=== PATIENT | male | born 1935 | race Hispanic/Latino ===

== ENCOUNTER 2022-03-06 14:46 | Emergency (ER) | payer MEDICARE, OTHER, SELFPAY ==
[2022-03-06 14:55] VITALS: BP 175/74; PULSE 71; RESP 20; TEMP 36.7; O2SAT 98; BMI 24.2
--- NOTE | 2022-03-06 15:35 | DI.RAD.S_ITS ---
PROCEDURE: XR CHEST 2V INDICATIONS: pneumonia worsening? TECHNIQUE: 2 views of the chest were acquired. COMPARISON: [facility], CR, XR CHEST 2 VIEWS, 04/06/2019, 13:46. FINDINGS: Surgical changes and devices: Sternotomy wires and mediastinal clips are present. Lungs and pleura: Mild patchy opacities are seen in the medial right lung base. No pleural effusion or pneumothorax. Mediastinum: Mediastinal contours are normal. Heart size is normal. Bones and chest wall: No suspicious bony abnormalities. Soft tissues appear unremarkable. IMPRESSION: Mild patchy opacities in the medial right lower lobe may represent pneumonia, atelectasis, or aspiration. Approved by: Al Pfeiffer M.D. on 03/06/2022 at 16:19
[2022-03-06] MEDS: AMOXICILLIN/CLAV 875/125 MG 1 TAB PO (16:47)
[2022-03-06] MEDS: KETOROLAC 10 MG TABLET PO (16:47)
[2022-03-06] MEDS: CIPROFLOXACIN/DEXAMETH OTIC SUSP 4 DROPS EAR-LEFT (16:51)
[2022-03-06] MEDS: ALBUTEROL HFA PREPACK 1 BOX MISC (16:51)
--- NOTE | 2022-03-06 17:31 | ED_ITS ---
HPI - Ear Problem <BEVERLEY Lazo - Last Filed: 03/06/22 17:38> General Chief complaint: Ear Stated complaint: Pneumonia not getting better Time Seen by Provider: 03/06/22 15:35 Source: patient Mode of arrival: Ambulatory History of Present Illness HPI Narrative: This is an 86-year-old gentleman who presents to the emergency department after a 5 day course of azithromycin for bilateral lobe pneumonia complaining of left ear pain and ear canal pain that he states has been ongoing for the last few days. He denies fever chills, states that he had an upper respiratory illness 2 weeks ago, started having fever and chills and was started on azithromycin for pneumonia found on x-ray. 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 He denies any hearing changes, states that the ear canal is tender, he is had a mild amount of drainage coming from the ear. He states that his pneumonia symptoms have improved although he has a frequent cough, denies congestion but has mucus production. Related Data Previous Rx's Medication Instructions Recorded acetaminophen 325 mg tablet 650 mg PO Q6H PRN pain #30 tabs 03/06/22 (Tylenol) albuterol sulfate 90 mcg/actuation 1 puff inhalation QID PRN 03/06/22 aerosol inhaler shortness of breath or wheezing #8.5 grams amoxicillin 875 mg-potassium 1 tab PO BID 10 days #20 tabs 03/06/22 clavulanate 125 mg tablet benzonatate 200 mg capsule 200 mg PO TID PRN cough #14 caps 03/06/22 Allergies Allergy/AdvReac Type Severity Reaction Status Date / Time No Known Drug Allergies Allergy Verified 03/06/22 15:05 Review of Systems <BEVERLEY Lazo - Last Filed: 03/06/22 17:38> Review of Systems ROS Unobtainable: All systems reviewed & are unremarkable except as noted in HPI and below Patient History <BEVERLEY Lazo - Last Filed: 03/06/22 17:38> Social History Smoking Status: Former smoker Smoking Status: Former smoker Substance Use Type: does not use Exam <BEVERLEY Lazo - Last Filed: 03/06/22 17:38> Narrative Exam Narrative: Reviewed vitals signs and nursing notes. General: cooperative, comfortable, in no acute distress, well groomed HEENT: symmetrical facial expressions, moist mucous membranes, left ear canal with erythema, mild amount of drainage versus wound present, tender to exam, left TM is suppurative, erythematous, without rupture, without mastoid tenderness, right TM with mild erythema at the base of the canal, without suppuration, erythema, or rupture of the TM. Cardiovascular: regular rate and rhythm, no peripheral edema, warm extremities Respiratory: normal effort, tachypneic, diminished breath sounds to the right middle and lower lobe, congestion present with productive cough able to speak in complete sentences, without wheezing, stridor, or abnormal breath sounds. No retractions. Without hypoxia Skin: brisk capillary refill, without pallor or erythema Neuro: normal speech and cognition, A&O x3, ambulatory, clear speech Psych: mental status is grossly normal, congruent mood, normal affect, pleasant and cooperative Initial Vital Signs Initial Vital Signs: Vital Signs Temperature 98.0 F 03/06/22 14:55 Pulse Rate 71 03/06/22 14:55 Respiratory Rate 20 03/06/22 14:55 Blood Pressure 175/74 H 03/06/22 14:55 Pulse Oximetry 98 03/06/22 14:55 Oxygen Delivery Method 03/06/22 14:55 <Paul Bolton DO - Last Filed: 03/06/22 19:22> Initial Vital Signs Initial Vital Signs: Vital Signs Temperature 98.0 F 03/06/22 14:55 Pulse Rate 71 03/06/22 14:55 Respiratory Rate 20 03/06/22 14:55 Blood Pressure 175/74 H 03/06/22 14:55 Pulse Oximetry 98 03/06/22 14:55 Oxygen Delivery Method 03/06/22 14:55 Course <BEVERLEY Lazo - Last Filed: 03/06/22 17:38> Orders Ordered: ED Orders 03/06/22 15:35 Chest [XR chest 2V] Stat 03/06/22 16:29 RT Consult Eval and Treat NOW Discontinued Medications Albuterol (Albuterol Hfa Mdi 60 Puff/8 Gm Inhaler) 1 puff INH NOW ONE Stop: 03/06/22 16:30 Albuterol (Albuterol Hfa Prepack) 1 box MISC SEEINSTR ONE Stop: 03/06/22 16:49 Last Admin: 03/06/22 16:51 Dose: 1 box Documented By: PEARL Amoxicillin/Clavulanate Potassium (Amoxicillin/Clav 875/125 Mg) 1 tab PO NOW ONE Stop: 03/06/22 16:29 Last Admin: 03/06/22 16:47 Dose: 1 tab Documented By: PEARL Ciprofloxacin/Dexamethasone (Ciprofloxacin/Dexameth Otic Susp) 4 drops EAR-LEFT NOW ONE Stop: 03/06/22 16:29 Last Admin: 03/06/22 16:51 Dose: 1 1000units Documented By: PEARL Ketorolac Tromethamine (Ketorolac 10 Mg Tablet) 10 mg PO NOW ONE Stop: 03/06/22 16:29 Last Admin: 03/06/22 16:47 Dose: 10 mg Documented By: PEARL Vital Signs Vital signs: Vital Signs - 8 hr 03/06/22 14:55 Temperature 98.0 F Pulse Rate 71 Respiratory Rate 20 Blood Pressure 175/74 H Pulse Oximetry 98 Oxygen Delivery Method Room Air <Paul Bolton DO - Last Filed: 03/06/22 19:22> Orders Ordered: ED Orders 03/06/22 15:35 Chest [XR chest 2V] Stat 03/06/22 16:29 RT Consult Eval and Treat NOW Discontinued Medications Albuterol (Albuterol Hfa Mdi 60 Puff/8 Gm Inhaler) 1 puff INH NOW ONE Stop: 03/06/22 16:30 Albuterol (Albuterol Hfa Prepack) 1 box MISC SEEINSTR ONE Stop: 03/06/22 16:49 Last Admin: 03/06/22 16:51 Dose: 1 box Documented By: PEARL Amoxicillin/Clavulanate Potassium (Amoxicillin/Clav 875/125 Mg) 1 tab PO NOW ONE Stop: 03/06/22 16:29 Last Admin: 03/06/22 16:47 Dose: 1 tab Documented By: PEARL Ciprofloxacin/Dexamethasone (Ciprofloxacin/Dexameth Otic Susp) 4 drops EAR-LEFT NOW ONE Stop: 03/06/22 16:29 Last Admin: 03/06/22 16:51 Dose: 1 1000units Documented By: PEARL Ketorolac Tromethamine (Ketorolac 10 Mg Tablet) 10 mg PO NOW ONE Stop: 03/06/22 16:29 Last Admin: 03/06/22 16:47 Dose: 10 mg Documented By: PEARL Vital Signs Vital signs: Vital Signs - 8 hr 03/06/22 14:55 Temperature 98.0 F Pulse Rate 71 Respiratory Rate 20 Blood Pressure 175/74 H Pulse Oximetry 98 Oxygen Delivery Method Room Air Medical Decision Making <Wendi Quintero, [facility] - Last Filed: 03/06/22 17:38> Imaging Data Chest x-ray: Radiologist's Impression: PROCEDURE:? XR CHEST 2V ? INDICATIONS:? pneumonia worsening? ? TECHNIQUE:? 2 views of the chest were acquired.? ? COMPARISON:? [facility], CR, XR CHEST 2 VIEWS, 04/06/2019, 13:46. ? FINDINGS:? ? Surgical changes and devices:? Sternotomy wires and mediastinal clips are present. ? Lungs and pleura:? Mild patchy opacities are seen in the medial right lung base.? No pleural effusion or pneumothorax. ? Mediastinum:? Mediastinal contours are normal.? Heart size is normal.? ? Bones and chest wall:? No suspicious bony abnormalities.? Soft tissues appear unremarkable.? ? IMPRESSION:? Mild patchy opacities in the medial right lower lobe may represent pneumonia, atelectasis, or aspiration. ? ? ? Approved by: Al Pfeiffer M.D. on 03/06/2022 at 16:19? MDM Narrative Medical decision making narrative: This is an 86-year-old gentleman to the emergency department for left ear pain and concern for infection after he was at an chemist [employer] appointment for his hearing aid. Patient was treated for pneumonia over the last 6 days with azithromycin, last dose was yesterday. On exam, it appears that patient has otitis externa with erythema, drainage, and tenderness of his left ear canal, left TM with erythema, is suppurative, and bulging without mastoid tenderness, anterior cervical lymphadenopathy, or rupture. Will treat with 10 days of Augmentin, this will likely help with pneumonia. He has mild patchy opacities in the medial right lower lobe on chest x-ray today. Respiratory came by for MDI teaching with spacer, he had improved aeration after albuterol MDI. Patient is without hypoxia, increased work of breathing, shortness of breath, fever or worsening symptoms. Will treat otitis externa with Ciprodex for 7-10 days and gave patient contact information for Dr. Hanley for follow-up as needed. Encouraged him to avoid use of his hearing aid to the left ear until his infection symptoms resolve and to follow-up with audiology as needed. Differential diagnosis includes who presents today complaining of right ear discharge, flaking of his canal and decreased hearing on the right. Presentation is suggestive of otitis externa of the +ear without evidence of acute otitis media, mastoiditis, malignant otitis externa, psoriasis, seborrheic dermatitis, cerumen impaction, acoustic neuroma, bullous myringitis or cholesteatoma. Ofloxacin 0.3% x7 days, fluticasone nasal spray b.i.d., cetirizine daily for 1 week prescribed today; please complete the entire course of this medication. - Motrin/Tylenol as needed for pain/fever. Short course of OTC decongestants, nasal saline rinses, or nasal corticosteroids may benefit symptoms of nasal congestion/ear pressure. - Follow up with PCP as directed. Return to clinic/ER instructions discussed for new, not-improing, or worsening symptoms. All questions answered. With or without otitis media, eustachian tube dysfunction, mastoiditis, cholesteatoma, bullous myringitis. Patient is appropriate and amenable to discharge home. Patient has been given strict return to ER precautions for any new or worsening symptoms. Patient understands to follow up closely with outpatient providers as instructed. Patient understands plan and agrees to discharge home. All questions and concerns answered at this time. Discharge Plan Departure Patient Disposition: Home Clinical Impression: Otitis externa Qualifiers: Otitis externa type: unspecified type Chronicity: acute Laterality: left Qualified Code(s): H60.502 - Unspecified acute noninfective otitis externa, left ear Otitis media Qualifiers: Otitis media type: suppurative Chronicity: acute Laterality: left Recurrence: non-recurrent Spontaneous tympanic membrane rupture: without spontaneous rupture Qualified Code(s): H66.002 - Acute suppurative otitis media without spontaneous rupture of ear drum, left ear Pneumonia Qualifiers: Pneumonia type: due to unspecified organism Laterality: right Lung location: middle lobe of lung Qualified Code(s): J18.9 - Pneumonia, unspecified organism Cough Qualifiers: Cough type: acute Qualified Code(s): R05.1 - Acute cough Instructions: Pneumonia-Adult, Middle Ear Infection, Cough, DI for Otitis Externa Activity Restrictions/Additional Instructions: *You have been diagnosed with an infection of your left ear canal and of the left middle ear. Please use instill 4 ear drops 2 times a day to your left ear for 7-10 days until it feels better and you are able to put your hearing aid back in. Please avoid putting her hearing aid in your left ear for the next few days. Please use Zyrtec/cetirizine at night as needed for congestion Please take the antibiotic twice a day for the next 10 days to treat the middle ear. Follow-up with Dr. Hanley from [facility] for an evaluation. Please call and make an appointment and see when you can get into the clinic. Follow-up with your regular doctor as needed an when this is clear you should be able to schedule your chemist [employer] appointment again. Thank you for trusting us with your care, take Tylenol as needed for pain. It was nice to meet you. Use albuterol every 4-6 hours as needed for shortness of breath if it helps her cough. This antibiotic your on help treat your pneumonia as well until it resolves. Please follow-up with your primary care provider for recheck of your symptoms. Stay hydrated. Return for worsening. *What to do: *Please continue to take your regular medications as directed. [x] New medication prescriptions sent to your pharmacy: [ [facility] [ ] New medication written as a paper prescription [ ] No new medications given *Please follow up with your primary care provider in 2-3 days, call for an appointment. Let them know you were seen in the Emergency Department and that we asked that you be seen for follow-up. We will electronically transmit a record of today's note if your PCP is in our system *If you do not have a primary care provider please contact [phone] to establish care with one of the [facility] primary care providers. *Return to Emergency Department if you should have any new, worsening, or concerning symptoms, such as [fever greater than 101F, chills, worsening pain, persistent vomiting or other bothersome symptoms]. Prescriptions: New amoxicillin-pot clavulanate 875-125 mg tablet 1 tab PO BID 10 Days Qty: 20 0RF acetaminophen [Tylenol] 325 mg tablet 650 mg PO Q6H PRN (Reason: pain) Qty: 30 0RF benzonatate 200 mg capsule 200 mg PO TID PRN (Reason: cough) Qty: 14 0RF albuterol sulfate 90 mcg/actuation HFA aerosol inhaler 1 puff inhalation QID PRN (Reason: shortness of breath or wheezing) Qty: 8.5 0RF Referrals: Phil Hanley MD [Physician] - Joel Irwin MD [Primary Care Provider] - Visit Report Forms: Patient Portal/API <Paul Bolton DO - Last Filed: 03/06/22 19:22> Cosign ED Attending Cosignature Attestation: I was immediately available in the department for consultation. This documentation has been reviewed and I agree with assessment and plan. Supervised by Paul Bolton DO
== END 2022-03-06 17:04 | disposition home or self-care (01) ==
PROVIDERS: Emergency Provider Nurse Practitioner Critical Care Medicine; PCP Internal Medicine
DX: H60.502 Unspecified acute noninfective otitis externa, left ear (principal); H66.002 Acute suppurative otitis media without spontaneous rupture of ear drum, left ear; J18.9 Pneumonia, unspecified organism; R05.1 Acute cough
CPT/HCPCS: 71046; 99283; A9270